=== PATIENT | female | born 1970 | race Caucasian/White ===

== ENCOUNTER → 2016-07-04 | Outpatient (CLI) | payer OTHER ==
--- NOTE | 2016-07-04 13:37 | KCIC ---
PROCEDURE Three view right shoulder and 2 view bilateral elbow dated 07/04/2016. HISTORY Worsening pain over the last 3 months. TECHNIQUE Three views right shoulder and 2 view bilateral elbow. COMPARISON None. FINDINGS Glenohumeral alignment is anatomic. No displaced fracture. No acute osseous or articular abnormality. AC joint unremarkable. 2 views of left elbow show normal bony alignment. No displaced fracture. No acute osseous or articular abnormality. No fat pad elevation to suggest joint effusion. 2 views of right elbow show normal bony alignment. No displaced fracture. No acute osseous or articular abnormality. No periostitis or bone destruction. IMPRESSION No acute abnormality of right shoulder or bilateral elbow. Electronically signed by: Barry Martin (Jul 04, 2016 13:35:31)
== END | disposition home or self-care (01) ==
LOC: KCIC 10:46
PROVIDERS: ATTEND Nurse Practitioner
DX: M25.522 Pain in left elbow (principal); M25.511 Pain in right shoulder
CPT/HCPCS: 73030; 73070

== ENCOUNTER → 2016-07-31 | Outpatient (CLI) | payer OTHER ==
--- NOTE | 2016-07-31 14:04 | KCIC ---
Two-view chest. Indication:Reason For StudyReason: CHEST PAIN, AND OFF STARTED 1 WEEK AGO / Spl. Instructions: / History: FINDINGS: Heart size is normal. Pulmonary vasculature is within normal limits. No pleural effusion or consolidating infiltrate. No pneumothorax. The mediastinal contours are within normal limits. IMPRESSION: Negative two-view chest. Electronically signed by: Cas Dallas (July 31, 2016 14:03:10)
== END | disposition home or self-care (01) ==
LOC: KCIC 12:47
PROVIDERS: ATTEND Family Medicine
DX: R07.9 Chest pain, unspecified (principal)
CPT/HCPCS: 71020

== ENCOUNTER 2016-09-30 13:57 | Emergency (ER) | payer MEDICAID ==
[~2016-09-30] VITALS: Ht 160 cm; Wt 93.4 kg
[2016-09-30 14:28] LABS: BASO # 0.1 x10^3/uL (0.0-0.2); BASO % 1 % (0-3); EOS % 1 % (0-3); HEMATOCRIT 43.8 % (36.0-47.0); HEMOGLOBIN 14.9 g/dL (12.0-15.5); LYMPH # 1.9 x10^3/uL (1.0-4.8); LYMPH % 16 % (24-48); MEAN CORPUSCULAR HEMOGLOBIN 31 pg (25-35); MEAN CORPUSCULAR HGB CONC 34 g/dL (31-37); MEAN CORPUSCULAR VOLUME 91 fL (79-100); MONO % 7 % (0-9); NEUT % 75 % (31-73); PLATELET COUNT 363 x10^3/uL (140-400); RED BLOOD COUNT 4.79 x10^6/uL (3.50-5.40); RED CELL DISTRIBUTION WIDTH 14.9 % (11.5-14.5); WHITE BLOOD COUNT 11.9 x10^3/uL (4.0-11.0)
--- NOTE | 2016-09-30 14:28 | PHYS DOC ---
Past Medical History Past Medical History: No Pertinent History Past Surgical History: No Surgical History Smoking: Cigarettes Alcohol Use: Occasionally Drug Use: Marijuana Adult General Chief Complaint Chief Complaint: DIZZY/LIGHT HEADED HPI HPI 45-year-old female presenting to the emergency department today generally feeling weak. This started about 2 or 3 days ago. She feels lightheaded worse when she stands up improved with laying down. He reports feeling palpitations a few days ago as well. Location generalized. Duration constant. She reports normal stooling habits . She denies blood in her stools. She reports normal urination. Review of systems is negative for shortness of breath abdominal pain nausea vomiting. All other review of systems is negative unless otherwise noted in history of present illness. ED course: 45-year-old female presenting to the emergency department today feeling generally weak.. Pertinent physical exam findings: The patient is tachycardic on physical examination. Abdomen is soft and nontender. Otherwise unremarkable. Blood work obtained along with EKG. EKG reviewed by myself shows sinus tachycardia. ST segments congruent. Leftward axis present. Labs unremarkable. UA suggestive of dehydration. The patient was then discharged home in stable condition to follow up with their primary care physician over the next 2-3 days. They were to return if their symptoms worsened or if they were concerned for any reason. Eriy-[id number]-[id number] discharge instructions and return precautions were given. Patient's questions were answered to their satisfaction. Patient is comfortable plan. Review of Systems Review of Systems SEE ABOVE. Allergies Allergies Allergies Coded Allergies Type Severity Reaction Last Updated Verified Penicillins Allergy Intermediate 09/30/16 Yes trazodone Allergy Intermediate 09/30/16 Yes Physical Exam Physical Exam SEE ABOVE Constitutional: Well developed, well nourished, no acute distress, non-toxic appearance. [] HENT: Normocephalic, atraumatic, bilateral external ears normal, oropharynx moist, no oral exudates, nose normal. [] Eyes: PERRLA, EOMI, conjunctiva normal, no discharge. [] Neck: Normal range of motion, no tenderness, supple, no stridor. [] Cardiovascular:Heart rate regular rhythm, no murmur [] Lungs & Thorax: Bilateral breath sounds clear to auscultation [] Abdomen: Bowel sounds normal, soft, no tenderness, no masses, no pulsatile masses. [] Skin: Warm, dry, no erythema, no rash. [] Back: No tenderness, no CVA tenderness. [] Extremities: No tenderness, no cyanosis, no clubbing, ROM intact, no edema. [] Neurologic: Alert and oriented X 3, normal motor function, normal sensory function, no focal deficits noted. [] Psychologic: Affect normal, judgement normal, mood normal. [] Current Patient Data Vital Signs Vital Signs Date Time Temp Pulse Resp B/P (MAP) Pulse Ox O2 Delivery O2 Flow Rate FiO2 09/30/16 14:05 97.6 107 18 148/96 (113) 100 Room Air 97.6 Lab Values Laboratory Tests Test 09/30/16 13:15 09/30/16 14:09 09/30/16 14:10 POC Urine HCG, Qualitative Hcg negative (Negative) Urine Collection Type Void Urine Color Dk yellow Urine Clarity Clear Urine pH 6.5 Urine Specific [place] >=1.030 Urine Protein Negative mg/dL (NEG-TRACE) Urine Glucose (UA) Negative mg/dL (NEG) Urine Ketones (Stick) 15 mg/dL (NEG) Urine Blood Negative (NEG) Urine Nitrite Negative (NEG) Urine Bilirubin Small (NEG) Urine Urobilinogen Dipstick 1.0 mg/dL (0.2 mg/dL) Urine Leukocyte Esterase Small (NEG) Urine RBC Occ /HPF (0-2) Urine WBC 1-4 /HPF (0-4) Urine Squamous Epithelial Cells Many /LPF Urine Bacteria Few /HPF (0-FEW) Urine Mucus Marked /LPF White Blood Count 11.9 x10^3/uL (4.0-11.0) H Red Blood Count 4.79 x10^6/uL (3.50-5.40) Hemoglobin 14.9 g/dL (12.0-15.5) Hematocrit 43.8 % (36.0-47.0) Mean Corpuscular Volume 91 fL (79-100) Mean Corpuscular Hemoglobin 31 pg (25-35) Mean Corpuscular Hemoglobin Concent 34 g/dL (31-37) Red Cell Distribution Width 14.9 % (11.5-14.5) H Platelet Count 363 x10^3/uL (140-400) Neutrophils (%) (Auto) 75 % (31-73) H Lymphocytes (%) (Auto) 16 % (24-48) L Monocytes (%) (Auto) 7 % (0-9) Eosinophils (%) (Auto) 1 % (0-3) Basophils (%) (Auto) 1 % (0-3) Neutrophils # (Auto) 9.0 x10^3uL (1.8-7.7) H Lymphocytes # (Auto) 1.9 x10^3/uL (1.0-4.8) Monocytes # (Auto) 0.8 x10^3/uL (0.0-1.1) Eosinophils # (Auto) 0.1 x10^3/uL (0.0-0.7) Basophils # (Auto) 0.1 x10^3/uL (0.0-0.2) Sodium Level 141 mmol/L (136-145) Potassium Level 3.6 mmol/L (3.5-5.1) Chloride Level 104 mmol/L (98-107) Carbon Dioxide Level 27 mmol/L (21-32) Anion Gap 10 (6-14) Blood Urea Nitrogen 11 mg/dL (7-20) Creatinine 0.8 mg/dL (0.6-1.0) Estimated GFR (Cockcroft-Gault) 77.9 Glucose Level 85 mg/dL (70-99) Lactic Acid Level 2.0 mmol/L (0.4-2.0) Calcium Level 9.8 mg/dL (8.5-10.1) Total Bilirubin 0.2 mg/dL (0.2-1.0) Direct Bilirubin 0.1 mg/dL (0.0-0.2) Aspartate Amino Transferase (AST) 16 U/L (15-37) Alanine Aminotransferase (ALT) 16 U/L (14-59) Alkaline Phosphatase 106 U/L (46-116) Troponin I Quantitative < 0.017 ng/mL (0.000-0.055) OO-Pvt-S-Type Natriuretic Peptide 166 pg/mL (0-124) H Total Protein 7.9 g/dL (6.4-8.2) Albumin 3.2 g/dL (3.4-5.0) L Lipase 107 U/L (73-393) Laboratory Tests 09/30/16 14:10 Laboratory Tests 09/30/16 14:10 EKG EKG [] Radiology/Procedures Radiology/Procedures [] Course & Med Decision Making Course & Med Decision Making Pertinent Labs and Imaging studies reviewed. (See chart for details) [] Dragon Disclaimer Dragon Disclaimer This electronic medical record was generated, in whole or in part, using a voice recognition dictation system. Departure Departure Impression: Primary Impression: Lightheadedness Additional Impressions: Generalized weakness Dehydration Disposition: HOME, SELF-CARE Condition: STABLE Referrals: SAMINA RESENDIZ APRN (PCP) Patient Instructions: Weakness, [id number] Additional Instructions: Thank you for allowing us to participate in your care today. Followup with your primary care physician in 3 days if your symptoms do not improve. Call your Primary Doctor tomorrow and inform them of your visit today. If you do not have a primary care provider you can ask for a list of our primary care providers. Return to the emergency department you have any new or concerning findings. This should be evaluated by the primary care physician and any necessary consulting services for continued management within a few days after discharge. Return to emergency room if you have any new or concerning symptoms including but not limited to fever, chills, nausea, vomiting, intractable pain, any new rashes, chest pain, shortness of air, uncontrolled bleeding, difficulty breathing, and/or vision loss. Problem Qualifiers ELFEGO VINCENT MD Sep 30, 2016 14:28
[2016-09-30 14:31] LABS: BILIRUBIN,URINE SMALL (NEG); GLUCOSE,URINE NEGATIVE (NEG); NITRITE,URINE NEGATIVE (NEG); PH,URINE 6.5; PROTEIN,URINE NEGATIVE (NEG-TRACE)
[2016-09-30 14:43] LABS: BACTERIA,URINE FEW /HPF (0-FEW); RBC,URINE OCC /HPF (0-2); SQUAMOUS EPITHELIAL CELL,UR MANY /LPF
--- NOTE | 2016-09-30 14:49 | RAD ---
Portable AP chest. History: Tachycardia AP view was taken of the chest. Lungs are clear. Heart is normal in size without heart failure. There is no effusion. Impression: 1. No acute infiltrates.
[2016-09-30 14:52] LABS: CALCIUM 9.8 mg/dL (8.5-10.1); CREATININE 0.8 mg/dL (0.6-1.0); GFR 77.9; POTASSIUM 3.6 mmol/L (3.5-5.1)
[2016-09-30 14:58] LABS: ALBUMIN 3.2 g/dL (3.4-5.0); DIRECT BILIRUBIN 0.1 mg/dL (0.0-0.2); TOTAL BILIRUBIN 0.2 mg/dL (0.2-1.0); TOTAL PROTEIN 7.9 g/dL (6.4-8.2)
[2016-09-30 15:05] VITALS: BP 111/67
--- NOTE | 2016-10-02 16:04 | EKG ---
[facility] [address] [place] [id number] Test Date: 2016-09-30 Test Time: 14:14:45 Pat Name: KIESHA VELÁZQUEZ Department: Room: Gender: F [employer] Of [employer] Operations: : 1970 Requested By: ELFEGO VINCENT Order Number: [id number] Reading MD: Measurements Intervals Onset Rate: 99 P: 41 MA: 98 QRS: 31 QRSD: 76 T: 76 QT: 348 QTc: 452 Interpretive Statements SINUS RHYTHM T ABNORMALITY IN LATERAL LEADS ABNORMAL ECG RI6.01 No previous ECG available for comparison
== END 2016-09-30 15:36 | disposition home or self-care (01) ==
LOC: ER 13:57
DX: R42 Dizziness and giddiness (principal); R53.1 Weakness; E86.0 Dehydration; R00.2 Palpitations; R00.0 Tachycardia, unspecified; F17.210 Nicotine dependence, cigarettes, uncomplicated; F12.10 Cannabis abuse, uncomplicated; Z88.5 Allergy status to narcotic agent; Z88.0 Allergy status to penicillin
CPT/HCPCS: 36415; 71010; 80048; 80076; 81001; 81025; 83605; 83690; 83880; 84484; 85027; 87086; 93005; 99285-25